=== PATIENT | male | born 1965 | race Caucasian/White ===

== ENCOUNTER → 2019-04-09 14:21 | Outpatient (CLI) | payer SELFPAY ==
--- NOTE | 2019-04-09 14:29 | CT_ITS ---
PROCEDURE: CT HEART W CALCIUM SCORE CLINICAL HISTORY: SCREENING COMPARISON: No exams were available for comparison TECHNIQUE: Axial images obtained with sagittal and coronal reformats. All CT scans at the facility use one or more dose reduction, viz: automated exposure control, ma/kV adjustment per patient size (including targeted exams where dose is matched to indication, i.e. head), or iterative reconstruction technique. FINDINGS: Coronary artery calcium score is 15 indicating mild plaque burden with moderate cardiovascular disease risk. No pertinent incidental findings. IMPRESSION: Mild plaque burden with moderate cardiovascular disease risk Dictated by: Alon Díaz MD 04/10/2019 06:28 Electronically signed by Alon Díaz MD in [place] 04/10/2019 06:28
== END ==
PROVIDERS: PCP Family Medicine; Visit Provider Internal Medicine Cardiovascular Disease
DX: Z13.6 Encounter for screening for cardiovascular disorders (principal)
CPT/HCPCS: 75571

== ENCOUNTER 2020-09-01 10:49 | Emergency (ER) | payer BC, SELFPAY ==
[2020-09-01 10:50] VITALS: BP 131/93; PULSE 71; RESP 16; TEMP 36.1; O2SAT 98; BMI 33.5
--- NOTE | 2020-09-01 11:02 | HMH.EDUTC ---
[facility] [place] Disposition Clinical Impression: Exposure to COVID-19 virus Disposition: Home, Self-Care Condition on Discharge: Good Instructions: Preventing the Spread of Coronavirus Discharge Instructions Referrals: Cortes Marie [Primary Care Provider] - Time of Disposition: 11:04 Medical Decision Making - Paevl Inquiry Pt receiving controlled substance: No Vital Signs: 09/01/20 10:50 Temperature 97.0 F L Temperature Source Temporal Artery Scan Pulse Rate [Left Brachial] 71 Respiratory Rate 16 Blood Pressure [Left Arm] 131/93 H Blood Pressure Mean [Left Arm] 105 Blood Pressure Source [Left Arm] Automatic Cuff Blood Pressure Position [Left Arm] Sitting 02 Sat by Pulse Oximetry 98 Oxygen Delivery Method Room Air Orders (Tests/Meds): ORDERS Category Date Time Status Covid-19 Nasal PCR ([facility]) Routine Lab 09/01/20 10:54 Ordered [facility] [place] HPI - General Stated complaint: covid exposure Time Seen by Provider: 09/01/20 11:03 Mode of Arrival: Ambulatory Source of Information: Patient Limitations: No Limitations Description of Symptoms (Recalled from Triage Doc. by RN): COVID TEST D/T EXPOSURE. DENIES SYMPTOMS HEENT Symptoms (Recalled from RN notes): No Resp Symptoms (Recalled from RN notes): No Skin Symptoms (Recalled from RN notes): No MS Symptoms (Recalled from RN notes): No Functional Status (Recalled from RN notes): WNL - History of Present Illness Provider Complaint: Exposure to COVID19 4 days ago. No symptoms at this time. Relieving factors: none Exacerbating factors: none Associated symptoms: denies other symptoms Treatments prior to arrival: none - Related Data Allergies Allergy/AdvReac Type Severity Reaction Status Date / Time No Known Allergies Allergy Verified 09/01/20 11:00 - Worker's Comp Is this a Worker's Comp case?: No [facility] History - Hepatitis A Screen Drug use history?: No High risk sexual behaviors?: No History of sexually transmitted infection?: No Currently employed?: No Childcare worker?: No Do you have indoor plumbing?: Yes Do you have electricity?: Yes Attestation statement:: This patient has been screened for Hepatitis A risk factors. I have reviewed the patient's past medical history: Yes ROS Obtained: Yes All systems reviewed & no additional complaints Physical Exam - General General appearance: alert, in no apparent distress - Head Head exam: normocephalic - Eye Eye exam: Present: PERRL - ENT ENT exam: Present: normal oropharynx - Chest Chest inspection: Present: normal inspection - Respiratory Respiratory exam: Present: normal lung sounds bilaterally - Cardiovascular Cardiovascular exam: Present: regular rate, normal rhythm - Neurological Exam Neurological exam: Present: alert, oriented X3 - Psychiatric Psychiatric exam: Present: normal affect, normal mood - Skin Skin exam: Present: warm, dry
[2020-09-01 11:06] VITALS: BP 131/93; PULSE 71; RESP 16; TEMP 36.1; O2SAT 98
--- NOTE | 2020-09-01 19:20 | PC.NURSE ---
PATIENT NOTIFIED OF NEGATIVE COVID RESULTS
== END 2020-09-01 11:10 | disposition home or self-care (01) ==
PROVIDERS: Emergency Provider Physician Assistant; PCP Family Medicine
DX: Z20.822 Contact with and (suspected) exposure to COVID-19 (principal)
CPT/HCPCS: 99202; G0463; U0003